=== PATIENT | male | born 1985 | race Two or more races ===

== ENCOUNTER 2023-02-21 13:01 | Inpatient (IN) | payer OTHER ==
[2023-02-21 14:38] VITALS: BMI 26.5
[2023-02-21] MEDS ORDERED: AMMONIUM LACTATE 12% LOTION 225 GM BOTTLE TP PRN (15:51)
[2023-02-21] MEDS ORDERED: BENZOCAINE/MENTHOL (CHLORASEPTIC ) LOZENGE MM PRN (15:51)
[2023-02-21] MEDS ORDERED: NALOXONE HCL 0.4 MG/ML VIAL IM PRN (15:51)
[2023-02-21] MEDS ORDERED: IBUPROFEN 400 MG TABLET (FP) PO PRN (15:51)
[2023-02-21] MEDS ORDERED: ACETAMINOPHEN 325 MG TABLET (FP) PO PRN (15:51)
[2023-02-21] MEDS ORDERED: COLLOIDAL OATMEAL 1 BAR EACH TP PRN (15:51)
[2023-02-21] MEDS ORDERED: NICOTINE 10 MG CARTRIDGE (INHALER) IH PRN (15:51)
[2023-02-21] MEDS ORDERED: POLYETHYLENE GLYCOL (HEALTHYLAX) 3350 17 GM PACKET PO PRN (15:51)
[2023-02-21] MEDS ORDERED: NALOXONE HCL (KLOXXADO) 8 MG SPRAY NS PRN (15:51)
[2023-02-21] MEDS ORDERED: MAGNESIUM HYDROX 2400MG/30ML ORAL SUSPENSION 30 ML CUP PO PRN (15:51)
[2023-02-21] MEDS ORDERED: TUBERCULIN PPD 5 TU/0.1ML SYRINGE (IN PATIENT USE ONLY) ID ONE (15:51)
[2023-02-21] MEDS ORDERED: guaiFENesin 600 MG TABLET.ER (FP) PO PRN (15:51)
[2023-02-21] MEDS ORDERED: IBUPROFEN 600 MG TABLET (FP) PO PRN (15:51)
[2023-02-21] MEDS ORDERED: BENZONATATE 200 MG CAPSULE PO PRN (15:51)
[2023-02-21] MEDS ORDERED: LOPERAMIDE HCL 2 MG CAPSULE PO PRN (15:51)
[2023-02-21] MEDS ORDERED: MAG HYDROX/AL HYDROX/SIMETH 30 ML UNIT-DOSE CUP PO PRN (15:51)
[2023-02-21] MEDS: PRENATAL VITAMINS W/ FOLIC ACID TABLET (FP) PO SCH (17:19)
[2023-02-21] MEDS ORDERED: TUBERCULIN PPD 5 TU/0.1ML VIAL ID ONE (17:20)
[2023-02-21] MEDS: THIAMINE HCL 100 MG TABLET (FP) PO SCH (21:09)
[2023-02-21] MEDS: MELATONIN 5 MG TABLETS PO SCH (21:10)
[2023-02-22] MEDS: PRENATAL VITAMINS W/ FOLIC ACID TABLET (FP) PO SCH (10:02)
[2023-02-22 12:55] LABS: POTASSIUM 3.9 mmol/L (3.5-5.1)
[2023-02-22 13:01] LABS: CALCIUM 8.9 mg/dL (8.5-10.1)
[2023-02-22 13:02] LABS: ALBUMIN 3.6 g/dl (3.4-5.0); BLOOD UREA NITROGEN 14.3 mg/dL (7-18)
[2023-02-22 13:05] LABS: CREATININE 0.9 mg/dL (0.55-1.3)
[2023-02-22 13:06] LABS: BILIRUBIN,TOTAL 0.4 mg/dL (0.2-1); TOT PROT 6.5 g/dl (6.4-8.2)
[2023-02-22 13:15] LABS: HEMATOCRIT 40.7 % (35.4-49); HEMOGLOBIN 14.1 GM/dL (11.7-16.9); MCH 30.1 pg (25.7-33.7); MCHC 34.6 g/dl (32.0-35.9); MEAN CELL VOLUME 87.1 fl (80-96); MEAN PLT VOLUME 9.5 fl (7.5-11.1); PLATELET COUNT 185 10^3/uL (134-434); RBC 4.68 M/mm3 (4.00-5.60); RDW 13.5 % (11.9-15.9); WHITE BLOOD COUNT 8.7 K/mm3 (4.0-10.0)
[2023-02-22 13:19] LABS: URINE APPEARANCE CLEAR; URINE BILIRUBIN NEGATIVE (NEGATIVE); URINE COLOR YELLOW; URINE GLUCOSE (UA) NEGATIVE (NEGATIVE); URINE KETONE NEGATIVE (NEGATIVE); URINE LEUK ESTERASE NEGATIVE (NEGATIVE); URINE NITRITE NEGATIVE (NEGATIVE); URINE PROTEIN NEGATIVE (NEGATIVE); URINE UROBILINOGEN 0.2 mg/dL (0.2-1.0)
[2023-02-22 13:43] LABS: SYPHILIS W/ RPR CONF NON-REACTIVE (NONREACTIVE)
[2023-02-22] MEDS: NICOTINE POLACRILEX 4 MG GUM BUC PRN ×2 (16:44→19:42)
[2023-02-22] MEDS: hydrOXYzine PAMOATE 25 MG CAPSULE (FP) PO PRN (17:52)
[2023-02-22] MEDS: MELATONIN 5 MG TABLETS PO SCH (21:15)
[2023-02-22] MEDS: THIAMINE HCL 100 MG TABLET (FP) PO SCH (21:15)
[2023-02-23] MEDS: PRENATAL VITAMINS W/ FOLIC ACID TABLET (FP) PO SCH (09:43)
[2023-02-23] MEDS: NICOTINE POLACRILEX 4 MG GUM BUC PRN ×3 (12:31→18:19)
[2023-02-23] MEDS: hydrOXYzine PAMOATE 25 MG CAPSULE (FP) PO PRN (13:17)
[2023-02-23] MEDS ORDERED: OLANZapine 5 MG TABLET PO ONE (17:12)
[2023-02-23] MEDS: THIAMINE HCL 100 MG TABLET (FP) PO SCH (21:19)
[2023-02-23] MEDS: MELATONIN 5 MG TABLETS PO SCH (21:19)
[2023-02-23] MEDS: OLANZapine 5 MG TABLET PO SCH (21:20)
[2023-02-24] MEDS: OLANZapine 5 MG TABLET PO SCH ×2 (09:53→21:17)
[2023-02-24] MEDS: PRENATAL VITAMINS W/ FOLIC ACID TABLET (FP) PO SCH (09:53)
[2023-02-24] MEDS: NICOTINE POLACRILEX 4 MG GUM BUC PRN ×3 (13:19→21:18)
[2023-02-24] MEDS: hydrOXYzine PAMOATE 25 MG CAPSULE (FP) PO PRN (13:20)
[2023-02-24] MEDS: THIAMINE HCL 100 MG TABLET (FP) PO SCH (21:17)
[2023-02-24] MEDS: MELATONIN 5 MG TABLETS PO SCH (21:17)
[2023-02-25] MEDS: PRENATAL VITAMINS W/ FOLIC ACID TABLET (FP) PO SCH (10:17)
[2023-02-25] MEDS: OLANZapine 5 MG TABLET PO SCH ×2 (10:17→21:05)
[2023-02-25] MEDS: NICOTINE POLACRILEX 4 MG GUM BUC PRN ×4 (10:18→23:28)
[2023-02-25] MEDS: hydrOXYzine PAMOATE 25 MG CAPSULE (FP) PO PRN ×2 (13:02→21:05)
[2023-02-25] MEDS ORDERED: OLANZapine 5 MG TABLET PO STA (15:47)
[2023-02-25] MEDS: MELATONIN 5 MG TABLETS PO SCH (21:05)
[2023-02-25] MEDS: THIAMINE HCL 100 MG TABLET (FP) PO SCH (21:05)
[2023-02-26] MEDS: NICOTINE POLACRILEX 4 MG GUM BUC PRN ×4 (10:30→21:32)
[2023-02-26] MEDS: OLANZapine 5 MG TABLET PO SCH ×2 (10:30→21:31)
[2023-02-26] MEDS: PRENATAL VITAMINS W/ FOLIC ACID TABLET (FP) PO SCH (10:30)
[2023-02-26] MEDS: THIAMINE HCL 100 MG TABLET (FP) PO SCH (21:31)
[2023-02-26] MEDS: hydrOXYzine PAMOATE 25 MG CAPSULE (FP) PO PRN (21:32)
[2023-02-27 07:16] VITALS: RESP 18
[2023-02-27] MEDS: OLANZapine 5 MG TABLET PO SCH ×2 (10:18→21:19)
[2023-02-27] MEDS: PRENATAL VITAMINS W/ FOLIC ACID TABLET (FP) PO SCH (10:18)
[2023-02-27] MEDS: NICOTINE POLACRILEX 4 MG GUM BUC PRN ×4 (10:19→21:19)
[2023-02-27] MEDS: THIAMINE HCL 100 MG TABLET (FP) PO SCH (21:18)
[2023-02-27] MEDS: hydrOXYzine PAMOATE 25 MG CAPSULE (FP) PO PRN (21:18)
[2023-02-27] MEDS: SUVOREXANT 10 MG TABLET PO PRN (21:19)
[2023-02-28] MEDS: PRENATAL VITAMINS W/ FOLIC ACID TABLET (FP) PO SCH (09:53)
[2023-02-28] MEDS: OLANZapine 5 MG TABLET PO SCH ×2 (09:53→21:18)
[2023-02-28] MEDS: NICOTINE POLACRILEX 4 MG GUM BUC PRN ×3 (09:53→20:31)
[2023-02-28] MEDS: SUVOREXANT 10 MG TABLET PO PRN (21:18)
[2023-02-28] MEDS: THIAMINE HCL 100 MG TABLET (FP) PO SCH (21:18)
[2023-03-01] MEDS: OLANZapine 5 MG TABLET PO SCH ×2 (10:01→21:19)
[2023-03-01] MEDS: PRENATAL VITAMINS W/ FOLIC ACID TABLET (FP) PO SCH (10:01)
[2023-03-01] MEDS: NICOTINE POLACRILEX 4 MG GUM BUC PRN ×4 (10:01→21:20)
[2023-03-01] MEDS: SUVOREXANT 10 MG TABLET PO PRN (21:19)
[2023-03-01] MEDS: THIAMINE HCL 100 MG TABLET (FP) PO SCH (21:19)
[2023-03-02] MEDS: PRENATAL VITAMINS W/ FOLIC ACID TABLET (FP) PO SCH (10:12)
[2023-03-02] MEDS: NICOTINE POLACRILEX 4 MG GUM BUC PRN ×4 (10:12→21:14)
[2023-03-02] MEDS: OLANZapine 5 MG TABLET PO SCH ×2 (10:12→21:12)
[2023-03-02] MEDS: THIAMINE HCL 100 MG TABLET (FP) PO SCH (21:11)
[2023-03-02] MEDS: SUVOREXANT 10 MG TABLET PO PRN (21:13)
[2023-03-03] MEDS: PRENATAL VITAMINS W/ FOLIC ACID TABLET (FP) PO SCH (10:14)
[2023-03-03] MEDS: OLANZapine 5 MG TABLET PO SCH ×2 (10:14→21:13)
[2023-03-03] MEDS: NICOTINE POLACRILEX 4 MG GUM BUC PRN ×4 (12:18→21:15)
[2023-03-03] MEDS: THIAMINE HCL 100 MG TABLET (FP) PO SCH (21:13)
[2023-03-03] MEDS: SUVOREXANT 10 MG TABLET PO PRN (21:14)
[2023-03-03] MEDS: hydrOXYzine PAMOATE 25 MG CAPSULE (FP) PO PRN (21:14)
[2023-03-04] MEDS: NICOTINE POLACRILEX 4 MG GUM BUC PRN ×4 (09:57→21:19)
[2023-03-04] MEDS: OLANZapine 5 MG TABLET PO SCH ×2 (09:57→21:18)
[2023-03-04] MEDS: PRENATAL VITAMINS W/ FOLIC ACID TABLET (FP) PO SCH (09:57)
[2023-03-04] MEDS: THIAMINE HCL 100 MG TABLET (FP) PO SCH (21:15)
[2023-03-04] MEDS: SUVOREXANT 10 MG TABLET PO PRN (21:17)
[2023-03-05] MEDS: PRENATAL VITAMINS W/ FOLIC ACID TABLET (FP) PO SCH (09:47)
[2023-03-05] MEDS: OLANZapine 5 MG TABLET PO SCH ×2 (09:48→21:03)
[2023-03-05] MEDS: NICOTINE POLACRILEX 4 MG GUM BUC PRN ×4 (09:48→21:05)
[2023-03-05] MEDS: THIAMINE HCL 100 MG TABLET (FP) PO SCH (21:04)
[2023-03-05] MEDS: SUVOREXANT 10 MG TABLET PO PRN (21:04)
[2023-03-06] MEDS: PRENATAL VITAMINS W/ FOLIC ACID TABLET (FP) PO SCH (10:02)
[2023-03-06] MEDS: OLANZapine 10 MG TABLET PO SCH ×2 (10:02→21:13)
[2023-03-06] MEDS: NICOTINE POLACRILEX 4 MG GUM BUC PRN ×4 (11:52→21:14)
[2023-03-06] MEDS: SUVOREXANT 10 MG TABLET PO PRN (21:13)
[2023-03-06] MEDS: THIAMINE HCL 100 MG TABLET (FP) PO SCH (21:13)
[2023-03-06] MEDS: hydrOXYzine PAMOATE 25 MG CAPSULE (FP) PO PRN (21:13)
[2023-03-07] MEDS: OLANZapine 10 MG TABLET PO SCH ×2 (10:24→21:09)
[2023-03-07] MEDS: PRENATAL VITAMINS W/ FOLIC ACID TABLET (FP) PO SCH (10:24)
[2023-03-07] MEDS: NICOTINE POLACRILEX 4 MG GUM BUC PRN ×4 (10:25→20:14)
[2023-03-07] MEDS: hydrOXYzine PAMOATE 25 MG CAPSULE (FP) PO PRN (21:09)
[2023-03-07] MEDS: THIAMINE HCL 100 MG TABLET (FP) PO SCH (21:09)
[2023-03-08 06:50] VITALS: BP 124/74; PULSE 82; TEMP 97.7
== END 2023-03-08 09:08 | disposition home or self-care (01) | DRG 772 ==
LOC: YASAS 13:01 → Y3W 16:57
PROVIDERS: ADMIT Allergy & Immunology; ATTEND Surgery
PROC: HZ42ZZZ Group Counseling for Substance Abuse Treatment, Cognitive-Behavioral (ICD-10-PCS; principal; 2023-02-21)
DX: F12.20 Cannabis dependence, uncomplicated (principal); F17.210 Nicotine dependence, cigarettes, uncomplicated; F31.9 Bipolar disorder, unspecified; F19.24 Other psychoactive substance dependence with psychoactive substance-induced mood disorder; Z86.59 Personal history of other mental and behavioral disorders
CPT/HCPCS: 36415; 80053; 81003; 85027; 86780; 86803; 93005; 93010; C9803-CS; U0003; U0005

== ENCOUNTER 2023-04-04 16:29 | Inpatient (IN) | payer OTHER ==
[2023-04-04 18:19] VITALS: BMI 28.1
[2023-04-04] MEDS ORDERED: POLYETHYLENE GLYCOL (HEALTHYLAX) 3350 17 GM PACKET PO PRN (21:30)
[2023-04-04] MEDS ORDERED: BENZOCAINE/MENTHOL (CHLORASEPTIC ) LOZENGE MM PRN (21:30)
[2023-04-04] MEDS ORDERED: MAGNESIUM HYDROX 2400MG/30ML ORAL SUSPENSION 30 ML CUP PO PRN (21:30)
[2023-04-04] MEDS ORDERED: NALOXONE HCL (KLOXXADO) 8 MG SPRAY NS PRN (21:30)
[2023-04-04] MEDS ORDERED: LOPERAMIDE HCL 2 MG CAPSULE PO PRN (21:30)
[2023-04-04] MEDS ORDERED: IBUPROFEN 400 MG TABLET (FP) PO PRN (21:30)
[2023-04-04] MEDS ORDERED: MAG HYDROX/AL HYDROX/SIMETH 30 ML UNIT-DOSE CUP PO PRN (21:30)
[2023-04-04] MEDS ORDERED: COLLOIDAL OATMEAL 1 BAR EACH TP PRN (21:30)
[2023-04-04] MEDS ORDERED: ACETAMINOPHEN 325 MG TABLET (FP) PO PRN (21:30)
[2023-04-04] MEDS ORDERED: AMMONIUM LACTATE 12% LOTION 225 GM BOTTLE TP PRN (21:30)
[2023-04-04] MEDS ORDERED: BENZONATATE 200 MG CAPSULE PO PRN (21:30)
[2023-04-04] MEDS ORDERED: NALOXONE HCL 0.4 MG/ML VIAL IM PRN (21:30)
[2023-04-04] MEDS ORDERED: guaiFENesin 600 MG TABLET.ER (FP) PO PRN (21:30)
[2023-04-04] MEDS ORDERED: IBUPROFEN 600 MG TABLET (FP) PO PRN (21:30)
[2023-04-04] MEDS: MELATONIN 5 MG TABLETS PO SCH (23:07)
[2023-04-04] MEDS: THIAMINE HCL 100 MG TABLET (FP) PO SCH (23:07)
[2023-04-05] MEDS ORDERED: ALBUTEROL SO4 HFA INHALER IH PRN (05:47)
[2023-04-05] MEDS ORDERED: NICOTINE 14 MG/24 HOURS TOPICAL PATCH TD SCH (10:00)
[2023-04-05] MEDS: PRENATAL VITAMINS W/ FOLIC ACID TABLET (FP) PO SCH (10:37)
[2023-04-05] MEDS: OLANZapine 5 MG TABLET PO SCH ×2 (10:37→21:09)
[2023-04-05] MEDS: NICOTINE POLACRILEX 2 MG GUM BUC PRN ×2 (10:39→19:16)
[2023-04-05 11:31] LABS: HEMATOCRIT 43.9 % (35.4-49); HEMOGLOBIN 14.2 GM/dL (11.7-16.9); MCH 28.8 pg (25.7-33.7); MCHC 32.4 g/dl (32.0-35.9); MEAN CELL VOLUME 88.8 fl (80-96); MEAN PLT VOLUME 9.4 fl (7.5-11.1); PLATELET COUNT 191 10^3/uL (134-434); RBC 4.95 M/mm3 (4.00-5.60); RDW 13.1 % (11.9-15.9); WHITE BLOOD COUNT 7.6 K/mm3 (4.0-10.0)
[2023-04-05 11:32] LABS: POTASSIUM 4.4 mmol/L (3.5-5.1)
[2023-04-05 11:34] LABS: CALCIUM 9.3 mg/dL (8.5-10.1)
[2023-04-05 11:35] LABS: BLOOD UREA NITROGEN 12.7 mg/dL (7-18)
[2023-04-05 11:38] LABS: CREATININE 1.1 mg/dL (0.55-1.3)
[2023-04-05 11:40] LABS: BILIRUBIN,TOTAL 0.6 mg/dL (0.2-1)
[2023-04-05] MEDS ORDERED: NICOTINE 14 MG/24 HOURS TOPICAL PATCH TD PRN (11:59)
[2023-04-05 14:37] LABS: PH,URINE 7.5 (5.0-8.0); URINE APPEARANCE CLEAR; URINE BILIRUBIN NEGATIVE (NEGATIVE); URINE COLOR YELLOW; URINE GLUCOSE (UA) NEGATIVE (NEGATIVE); URINE KETONE NEGATIVE (NEGATIVE); URINE LEUK ESTERASE NEGATIVE (NEGATIVE); URINE NITRITE NEGATIVE (NEGATIVE); URINE PROTEIN NEGATIVE (NEGATIVE); URINE UROBILINOGEN 0.2 mg/dL (0.2-1.0)
[2023-04-05] MEDS: MELATONIN 5 MG TABLETS PO SCH (21:09)
[2023-04-05] MEDS: THIAMINE HCL 100 MG TABLET (FP) PO SCH (21:10)
[2023-04-06] MEDS: PRENATAL VITAMINS W/ FOLIC ACID TABLET (FP) PO SCH (09:48)
[2023-04-06] MEDS: OLANZapine 5 MG TABLET PO SCH ×2 (09:48→21:11)
[2023-04-06] MEDS: NICOTINE POLACRILEX 2 MG GUM BUC PRN ×3 (09:49→15:33)
[2023-04-06] MEDS: hydrOXYzine PAMOATE 25 MG CAPSULE (FP) PO PRN ×2 (13:25→21:11)
[2023-04-06] MEDS: THIAMINE HCL 100 MG TABLET (FP) PO SCH (21:10)
[2023-04-06] MEDS: MELATONIN 5 MG TABLETS PO SCH (21:10)
[2023-04-07] MEDS: PRENATAL VITAMINS W/ FOLIC ACID TABLET (FP) PO SCH (10:20)
[2023-04-07] MEDS: OLANZapine 5 MG TABLET PO SCH ×2 (10:20→21:13)
[2023-04-07] MEDS: NICOTINE POLACRILEX 2 MG GUM BUC PRN ×2 (12:01→17:24)
[2023-04-07] MEDS: hydrOXYzine PAMOATE 25 MG CAPSULE (FP) PO PRN (12:01)
[2023-04-07] MEDS: THIAMINE HCL 100 MG TABLET (FP) PO SCH (21:13)
[2023-04-07] MEDS: MELATONIN 5 MG TABLETS PO SCH (21:13)
[2023-04-08] MEDS: OLANZapine 5 MG TABLET PO SCH ×2 (09:55→21:10)
[2023-04-08] MEDS: PRENATAL VITAMINS W/ FOLIC ACID TABLET (FP) PO SCH (09:55)
[2023-04-08] MEDS: NICOTINE POLACRILEX 2 MG GUM BUC PRN ×2 (11:42→21:10)
[2023-04-08] MEDS: MELATONIN 5 MG TABLETS PO SCH (21:10)
[2023-04-08] MEDS: hydrOXYzine PAMOATE 25 MG CAPSULE (FP) PO PRN (21:10)
[2023-04-08] MEDS: THIAMINE HCL 100 MG TABLET (FP) PO SCH (21:10)
[2023-04-09] MEDS: OLANZapine 5 MG TABLET PO SCH ×2 (09:30→21:13)
[2023-04-09] MEDS: NICOTINE POLACRILEX 2 MG GUM BUC PRN ×3 (09:30→21:13)
[2023-04-09] MEDS: PRENATAL VITAMINS W/ FOLIC ACID TABLET (FP) PO SCH (09:30)
[2023-04-09] MEDS: MELATONIN 5 MG TABLETS PO SCH (21:13)
[2023-04-09] MEDS: hydrOXYzine PAMOATE 25 MG CAPSULE (FP) PO PRN (21:13)
[2023-04-09] MEDS: THIAMINE HCL 100 MG TABLET (FP) PO SCH (21:13)
[2023-04-10] MEDS: NICOTINE POLACRILEX 2 MG GUM BUC PRN ×5 (08:46→21:28)
[2023-04-10] MEDS: PRENATAL VITAMINS W/ FOLIC ACID TABLET (FP) PO SCH (10:47)
[2023-04-10] MEDS: OLANZapine 5 MG TABLET PO SCH ×2 (10:47→21:27)
[2023-04-10] MEDS: MELATONIN 5 MG TABLETS PO SCH (21:27)
[2023-04-10] MEDS: hydrOXYzine PAMOATE 25 MG CAPSULE (FP) PO PRN (21:27)
[2023-04-10] MEDS: THIAMINE HCL 100 MG TABLET (FP) PO SCH (21:27)
[2023-04-11] MEDS: PRENATAL VITAMINS W/ FOLIC ACID TABLET (FP) PO SCH (09:34)
[2023-04-11] MEDS: OLANZapine 5 MG TABLET PO SCH ×2 (09:34→21:38)
[2023-04-11] MEDS: NICOTINE POLACRILEX 2 MG GUM BUC PRN ×3 (11:39→21:40)
[2023-04-11] MEDS: MELATONIN 5 MG TABLETS PO SCH (21:38)
[2023-04-11] MEDS: THIAMINE HCL 100 MG TABLET (FP) PO SCH (21:38)
[2023-04-12] MEDS: PRENATAL VITAMINS W/ FOLIC ACID TABLET (FP) PO SCH (10:02)
[2023-04-12] MEDS: OLANZapine 5 MG TABLET PO SCH ×2 (10:02→21:12)
[2023-04-12] MEDS: NICOTINE POLACRILEX 2 MG GUM BUC PRN ×3 (10:03→21:13)
[2023-04-12] MEDS: THIAMINE HCL 100 MG TABLET (FP) PO SCH (21:12)
[2023-04-12] MEDS: MELATONIN 5 MG TABLETS PO SCH (21:12)
[2023-04-12] MEDS: hydrOXYzine PAMOATE 25 MG CAPSULE (FP) PO PRN (21:12)
[2023-04-13] MEDS: hydrOXYzine PAMOATE 25 MG CAPSULE (FP) PO PRN ×2 (02:05→21:19)
[2023-04-13] MEDS: OLANZapine 5 MG TABLET PO SCH ×2 (09:31→21:19)
[2023-04-13] MEDS: PRENATAL VITAMINS W/ FOLIC ACID TABLET (FP) PO SCH (09:31)
[2023-04-13] MEDS: NICOTINE POLACRILEX 2 MG GUM BUC PRN ×3 (09:32→21:20)
[2023-04-13] MEDS: MELATONIN 5 MG TABLETS PO SCH (21:19)
[2023-04-13] MEDS: THIAMINE HCL 100 MG TABLET (FP) PO SCH (21:19)
[2023-04-14] MEDS: OLANZapine 5 MG TABLET PO SCH ×2 (10:16→21:23)
[2023-04-14] MEDS: PRENATAL VITAMINS W/ FOLIC ACID TABLET (FP) PO SCH (10:16)
[2023-04-14] MEDS: NICOTINE POLACRILEX 2 MG GUM BUC PRN ×4 (10:17→21:24)
[2023-04-14] MEDS: THIAMINE HCL 100 MG TABLET (FP) PO SCH (21:23)
[2023-04-14] MEDS: hydrOXYzine PAMOATE 25 MG CAPSULE (FP) PO PRN (21:23)
[2023-04-14] MEDS: MELATONIN 5 MG TABLETS PO SCH (21:23)
[2023-04-15] MEDS: OLANZapine 5 MG TABLET PO SCH ×2 (09:58→21:08)
[2023-04-15] MEDS: PRENATAL VITAMINS W/ FOLIC ACID TABLET (FP) PO SCH (09:58)
[2023-04-15] MEDS: NICOTINE POLACRILEX 2 MG GUM BUC PRN ×4 (09:59→21:10)
[2023-04-15] MEDS: MELATONIN 5 MG TABLETS PO SCH (21:08)
[2023-04-15] MEDS: THIAMINE HCL 100 MG TABLET (FP) PO SCH (21:09)
[2023-04-16] MEDS: OLANZapine 5 MG TABLET PO SCH ×2 (09:50→21:37)
[2023-04-16] MEDS: PRENATAL VITAMINS W/ FOLIC ACID TABLET (FP) PO SCH (09:50)
[2023-04-16] MEDS: NICOTINE POLACRILEX 2 MG GUM BUC PRN ×4 (11:26→21:37)
[2023-04-16] MEDS: THIAMINE HCL 100 MG TABLET (FP) PO SCH (21:36)
[2023-04-16] MEDS: MELATONIN 5 MG TABLETS PO SCH (21:37)
[2023-04-17] MEDS: NICOTINE POLACRILEX 2 MG GUM BUC PRN ×4 (07:56→21:22)
[2023-04-17] MEDS: PRENATAL VITAMINS W/ FOLIC ACID TABLET (FP) PO SCH (10:07)
[2023-04-17] MEDS: OLANZapine 5 MG TABLET PO SCH ×2 (10:07→21:21)
[2023-04-17] MEDS: MELATONIN 5 MG TABLETS PO SCH (21:21)
[2023-04-17] MEDS: THIAMINE HCL 100 MG TABLET (FP) PO SCH (21:21)
[2023-04-17] MEDS: hydrOXYzine PAMOATE 25 MG CAPSULE (FP) PO PRN (21:21)
[2023-04-18] MEDS: OLANZapine 5 MG TABLET PO SCH ×2 (09:31→21:35)
[2023-04-18] MEDS: PRENATAL VITAMINS W/ FOLIC ACID TABLET (FP) PO SCH (09:32)
[2023-04-18] MEDS: NICOTINE POLACRILEX 2 MG GUM BUC PRN ×3 (11:43→21:37)
[2023-04-18] MEDS: THIAMINE HCL 100 MG TABLET (FP) PO SCH (21:35)
[2023-04-18] MEDS: MELATONIN 5 MG TABLETS PO SCH (21:35)
[2023-04-19] MEDS: PRENATAL VITAMINS W/ FOLIC ACID TABLET (FP) PO SCH (10:15)
[2023-04-19] MEDS: OLANZapine 5 MG TABLET PO SCH ×2 (10:16→21:21)
[2023-04-19] MEDS: NICOTINE POLACRILEX 2 MG GUM BUC PRN ×2 (10:16→14:57)
[2023-04-19] MEDS: MELATONIN 5 MG TABLETS PO SCH (21:21)
[2023-04-19] MEDS: THIAMINE HCL 100 MG TABLET (FP) PO SCH (21:21)
[2023-04-20] MEDS: OLANZapine 5 MG TABLET PO SCH ×2 (09:54→21:23)
[2023-04-20] MEDS: NICOTINE POLACRILEX 2 MG GUM BUC PRN ×3 (09:55→21:24)
[2023-04-20] MEDS: PRENATAL VITAMINS W/ FOLIC ACID TABLET (FP) PO SCH (09:55)
[2023-04-20] MEDS: THIAMINE HCL 100 MG TABLET (FP) PO SCH (21:23)
[2023-04-20] MEDS: MELATONIN 5 MG TABLETS PO SCH (21:24)
[2023-04-21] MEDS: OLANZapine 5 MG TABLET PO SCH ×2 (10:18→21:14)
[2023-04-21] MEDS: PRENATAL VITAMINS W/ FOLIC ACID TABLET (FP) PO SCH (10:18)
[2023-04-21] MEDS: NICOTINE POLACRILEX 2 MG GUM BUC PRN ×3 (12:39→19:59)
[2023-04-21] MEDS: MELATONIN 5 MG TABLETS PO SCH (21:14)
[2023-04-21] MEDS: THIAMINE HCL 100 MG TABLET (FP) PO SCH (21:14)
[2023-04-22] MEDS: NICOTINE POLACRILEX 2 MG GUM BUC PRN ×4 (08:55→21:24)
[2023-04-22] MEDS: OLANZapine 5 MG TABLET PO SCH ×2 (10:04→21:23)
[2023-04-22] MEDS: PRENATAL VITAMINS W/ FOLIC ACID TABLET (FP) PO SCH (10:04)
[2023-04-22] MEDS: MELATONIN 5 MG TABLETS PO SCH (21:22)
[2023-04-22] MEDS: THIAMINE HCL 100 MG TABLET (FP) PO SCH (21:22)
[2023-04-23] MEDS: NICOTINE POLACRILEX 2 MG GUM BUC PRN ×4 (07:37→21:22)
[2023-04-23] MEDS: OLANZapine 5 MG TABLET PO SCH ×2 (09:39→21:21)
[2023-04-23] MEDS: PRENATAL VITAMINS W/ FOLIC ACID TABLET (FP) PO SCH (09:39)
[2023-04-23] MEDS: MELATONIN 5 MG TABLETS PO SCH (21:20)
[2023-04-23] MEDS: THIAMINE HCL 100 MG TABLET (FP) PO SCH (21:20)
[2023-04-23] MEDS: hydrOXYzine PAMOATE 25 MG CAPSULE (FP) PO PRN (21:21)
[2023-04-24] MEDS: NICOTINE POLACRILEX 2 MG GUM BUC PRN ×4 (09:04→21:08)
[2023-04-24] MEDS: PRENATAL VITAMINS W/ FOLIC ACID TABLET (FP) PO SCH (10:18)
[2023-04-24] MEDS: OLANZapine 5 MG TABLET PO SCH ×2 (10:19→21:07)
[2023-04-24] MEDS: THIAMINE HCL 100 MG TABLET (FP) PO SCH (21:07)
[2023-04-24] MEDS: MELATONIN 5 MG TABLETS PO SCH (21:07)
[2023-04-25] MEDS: NICOTINE POLACRILEX 2 MG GUM BUC PRN ×5 (05:15→21:57)
[2023-04-25] MEDS: PRENATAL VITAMINS W/ FOLIC ACID TABLET (FP) PO SCH (09:07)
[2023-04-25] MEDS: OLANZapine 5 MG TABLET PO SCH ×2 (09:07→21:15)
[2023-04-25] MEDS: MELATONIN 5 MG TABLETS PO SCH (21:15)
[2023-04-25] MEDS: THIAMINE HCL 100 MG TABLET (FP) PO SCH (21:15)
[2023-04-26] MEDS: NICOTINE POLACRILEX 2 MG GUM BUC PRN ×3 (09:04→21:07)
[2023-04-26] MEDS: PRENATAL VITAMINS W/ FOLIC ACID TABLET (FP) PO SCH (10:23)
[2023-04-26] MEDS: OLANZapine 5 MG TABLET PO SCH ×2 (10:23→21:06)
[2023-04-26] MEDS: THIAMINE HCL 100 MG TABLET (FP) PO SCH (21:06)
[2023-04-26] MEDS: MELATONIN 5 MG TABLETS PO SCH (21:06)
[2023-04-27] MEDS: NICOTINE POLACRILEX 2 MG GUM BUC PRN ×4 (07:08→21:17)
[2023-04-27] MEDS: PRENATAL VITAMINS W/ FOLIC ACID TABLET (FP) PO SCH (09:50)
[2023-04-27] MEDS: OLANZapine 5 MG TABLET PO SCH ×2 (09:50→21:17)
[2023-04-27] MEDS: THIAMINE HCL 100 MG TABLET (FP) PO SCH (21:16)
[2023-04-27] MEDS: MELATONIN 5 MG TABLETS PO SCH (21:17)
[2023-04-28 07:28] VITALS: RESP 18
[2023-04-28] MEDS: OLANZapine 5 MG TABLET PO SCH ×2 (09:53→21:10)
[2023-04-28] MEDS: PRENATAL VITAMINS W/ FOLIC ACID TABLET (FP) PO SCH (09:53)
[2023-04-28] MEDS: NICOTINE POLACRILEX 2 MG GUM BUC PRN ×2 (09:54→15:32)
[2023-04-28] MEDS: THIAMINE HCL 100 MG TABLET (FP) PO SCH (21:10)
[2023-04-28] MEDS: MELATONIN 5 MG TABLETS PO SCH (21:11)
[2023-04-29] MEDS: OLANZapine 5 MG TABLET PO SCH ×2 (09:34→21:24)
[2023-04-29] MEDS: PRENATAL VITAMINS W/ FOLIC ACID TABLET (FP) PO SCH (09:34)
[2023-04-29] MEDS: NICOTINE POLACRILEX 2 MG GUM BUC PRN ×3 (11:04→21:25)
[2023-04-29] MEDS: THIAMINE HCL 100 MG TABLET (FP) PO SCH (21:24)
[2023-04-29] MEDS: MELATONIN 5 MG TABLETS PO SCH (21:25)
[2023-04-30] MEDS: NICOTINE POLACRILEX 2 MG GUM BUC PRN ×3 (07:36→21:17)
[2023-04-30] MEDS: OLANZapine 5 MG TABLET PO SCH ×2 (10:19→21:16)
[2023-04-30] MEDS: PRENATAL VITAMINS W/ FOLIC ACID TABLET (FP) PO SCH (10:19)
[2023-04-30] MEDS: MELATONIN 5 MG TABLETS PO SCH (21:16)
[2023-04-30] MEDS: THIAMINE HCL 100 MG TABLET (FP) PO SCH (21:16)
[2023-05-01] MEDS: NICOTINE POLACRILEX 2 MG GUM BUC PRN ×6 (08:03→21:08)
[2023-05-01] MEDS: PRENATAL VITAMINS W/ FOLIC ACID TABLET (FP) PO SCH (10:21)
[2023-05-01] MEDS: OLANZapine 5 MG TABLET PO SCH ×2 (10:22→21:07)
[2023-05-01] MEDS: THIAMINE HCL 100 MG TABLET (FP) PO SCH (21:07)
[2023-05-01] MEDS: MELATONIN 5 MG TABLETS PO SCH (21:07)
[2023-05-02] MEDS: NICOTINE POLACRILEX 2 MG GUM BUC PRN ×2 (00:19→08:38)
[2023-05-02 06:53] VITALS: BP 106/79; PULSE 81; TEMP 97.5
[2023-05-02] MEDS: PRENATAL VITAMINS W/ FOLIC ACID TABLET (FP) PO SCH (09:09)
[2023-05-02] MEDS: OLANZapine 5 MG TABLET PO SCH (09:09)
== END 2023-05-02 09:18 | disposition home or self-care (01) | DRG 772 ==
LOC: YASAS 16:29 → Y3E 21:55
PROVIDERS: ADMIT Allergy & Immunology; ATTEND Psychiatry & Neurology Pain Medicine
PROC: HZ42ZZZ Group Counseling for Substance Abuse Treatment, Cognitive-Behavioral (ICD-10-PCS; principal; 2023-04-04)
DX: F10.20 Alcohol dependence, uncomplicated (principal); F12.20 Cannabis dependence, uncomplicated; F17.210 Nicotine dependence, cigarettes, uncomplicated; F19.259 Other psychoactive substance dependence with psychoactive substance-induced psychotic disorder, unspecified; F31.9 Bipolar disorder, unspecified; Z87.09 Personal history of other diseases of the respiratory system
CPT/HCPCS: 36415; 80053; 81003; 85027; 86780; 87635